=== PATIENT | female | born 1990 | race African-American/Black ===

== ENCOUNTER 2018-04-07 18:15 | Emergency (ER) | payer OTHER ==
[2018-04-07 18:20] VITALS: BP 144/71; PULSE 89; TEMP 98.7; BMI 26.9
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
[2018-04-07] MEDS ORDERED: KETOROLAC TROMETHAMINE 30 MG/1 ML VIAL IM ONE (19:50)
[2018-04-07] MEDS ORDERED: KETOROLAC TROMETHAMINE 30 MG/1 ML VIAL ONE (19:56)
[2018-04-07] MEDS ORDERED: CYCLOBENZAPRINE HCL 10 MG TABLET (FP) ONE (19:56)
[2018-04-07] MEDS ORDERED: CYCLOBENZAPRINE HCL 5 MG TABLET PO ONE (20:00)
== END 2018-04-07 20:47 | disposition home or self-care (01) ==
LOC: JERFT 18:15
PROC: 3E0233Z Introduction of Anti-inflammatory into Muscle, Percutaneous Approach (ICD-10-PCS; principal; 2018-04-07)
DX: S39.012A Strain of muscle, fascia and tendon of lower back, initial encounter (principal); X58.XXXA Exposure to other specified factors, initial encounter; Y93.89 Activity, other specified; Y92.89 Other specified places as the place of occurrence of the external cause
CPT/HCPCS: 84703; 99281-25